=== PATIENT | male | born 1990 | race Caucasian/White ===

== ENCOUNTER 2016-07-14 12:22 | Emergency (ER) | payer MEDICAID ==
[2016-07-14 12:34] VITALS: BP 134/88
--- NOTE | 2016-07-14 12:42 | ED Physician Chart ---
Chief Complaint/HPI - Patient Information Date Seen:: 07/14/16 Time Seen:: 12:37 Chief Complaint:: CHEST PAIN X 3 DAYS History of Present Illness:: This 25-year-old male presents with a three-day history of upper substernal chest pain that radiates to his back and both his right and left shoulder regions. The pain has been constant and not intermittent. He describes it as a 8/10 severity with no aggravating or relieving factors. He denies any prior history of heart disease, diabetes, hyperlipidemia or hypertension. The patient is accompanied by mild to moderate respiratory distress. He denies any associated nausea or vomiting. No diaphoresis. The patient denies use of cocaine or tobacco. He does consume a hike quantity of beer on a daily basis. Allergies:: Allergies Allergy/AdvReac Type Severity Reaction Status Date / Time No Known Allergies Allergy Verified 07/14/16 12:30 Vitals:: Vital Signs - 8 hr 07/14/16 12:34 BP 134/88 Review of Systems - Review of Systems General/Constitutional: No fever, No chills, No weight loss, No weakness, No diaphoresis, Loss of appetite Skin: No skin lesions, No rash Head: No headache, No light-headedness Eyes: No loss of vision, No diplopia ENT: No earache, No sore throat, No tinnitus Neck: Neck pain (The patient has pain in the posterior neck region associated with the chest pain.), Stiffness, No mass noted Cardio Vascular: Chest pain, No palpitations, No PND, No edema Pulmonary: SOB, No cough, No sputum, No wheezing GI: No nausea, No vomiting, No diarrhea, No pain G/U: No dysuria, No frequency, No hematuria Musculoskeletal: Other ( Chest pain radiates to both the right and left shoulder regions.) Psychiatric: No prior psych history, No suicidal ideation Hematopoietic: No bruising, No lymphadenopathy Allergic/Immuno: No urticaria, No angioedema Neurological: No syncope, No weakness, No headache, No seizure, No dizziness, No confusion, No vertigo Past Medical History - Past Medical History Past Medical History: No significant medical hx Social History: Non Smoker, Alcohol, No Drug Use, Surgical History: None Family Medical History - Family Member Nephew History Unknown: Yes Ethnicity: Physical Exam - Physical Examination General/Constitutional: Well-developed, well-nourished, Alert, Non-toxic appearing, Ambulatory Other Gen/Cons comments:: Moderate distress from complained of chest pain. This was addressed with oral aspirin and sublingual nitroglycerin with moderate improvement. Head: Atraumatic Eyes: Lids, conjuctiva normal, PERRL, EOMI Skin: Nl inspection, No rash, No skin lesions, No ecchymosis ENMT: External ears, nose nl, Lips, teeth, gums nl, Oropharynx nl, Tonsils nl Neck: Nontender, Full ROM w/o pain, No JVD, No nuchal rigidity, No mass, No stridor Respiratory: Nl effort/Exclusion, Clear to Auscultation, No Wheeze/Rhonchi/Rales Cardio Vascular: RRR, No murmur, gallop, rubs, NL S1 S2, Carotid/Femoral/Distal pulses equal bilaterally GI: No tenderness/rebounding/guarding, No organomegaly, No hernia, Normal BS's, Nondistended, No mass/bruits, No McBurney tenderness Other GI comments:: Rectal exam deferred at my discretion. : No CVA tenderness Extremities: No tenderness or effusion, Full ROM, normal strength in all extremities, No edema, Normal digits & nails Other Extremities comments:: tenderness and Shepherd's sign is negative bilaterally. Neuro/Psych: Alert/oriented, Normal sensory exam, Normal motor strength, Mood normal, Normal gait, No focal deficits Labs/Radiology/EKG Results - Lab Results Results: Single view chest x-ray shows no cardiomegaly or CHF. NO mediastinall widening. No pneumothorax. No areas of pulmonary consolidation or infiltrate. Impression: No acute cardiopulmonary findings. EKG interpretation the patient has sinus rhythm at a rate of 83. Normal WA interval. Normal QRS duration. Normal QT interval. There is ST segment elevation or J-point elevation in leads V1 through V4. Laboratory Tests 07/14/16 07/14/16 07/14/16 12:49 12:49 12:49 WBC 7.2 RBC 5.41 Hgb 16.1 Hct 47.4 MCV 87.6 MCH 29.8 MCHC Differential 34.0 RDW 12.7 Plt Count 155 MPV 9.3 Band Neutrophils % 3 Neutrophils (Manual) 67 Lymphocytes 16 L Monocytes 12 H Eosinophils 1 Atypical Lymphocytes 1 Platelet Estimate ADEQUATE Sodium 133 L Potassium 3.5 Chloride 105 Carbon Dioxide 23.1 Anion Gap 8.4 BUN 9 Creatinine 0.8 Est GFR ( Amer) > 60.0 Est GFR (Non-Af Amer) > 60.0 BUN/Creatinine Ratio 11.3 Glucose 126 H Calcium 9.2 Troponin I 0.20 H* Laboratory interpretation troponin of 0.2 consistent with acute cardiac ischemia. Normal white count and hemoglobin level. Electrolytes were all within the normal range with the exception of a serum sodium of 133. This is probably clinically insignificant. Assessment - Assessment General Assessment: CASE SUMMARY: this 25-year-old male presented with three days of substernal chest pain that radiated to the posterior neck and upper back, and both shoulders. The pain had been constant since onset and there were no poetic components to it. Patient's cardiovascular examination was within normal limits. The patient's EKG showed J point elevation and leads the one through before. The computer read the EKG as showing an anterior myocardial infarction. The patient's complaints were addressed with PO aspirin 162 mg and two doses of sublingual nitroglycerin. The patient had improvement in his pain following this intervention. Chest x-ray was negative for cardiomegaly, CHF, mediastinal widening and pneumothorax. The serum troponin was 0.2 which is on the high side. Since we have no [employer], in a formerly [facility] was contacted and I spoke to Dr. Davion herman. He concurred with transfer to their facility for further diagnostic evaluation of the chest pain and possible coronary angiography. MDM DDX ACUTE CHEST PAIN: NOT Aortic dissection based on the patient's history and physical exam showing equal pulses in all four extremities. NOT Pulmonary embolism as the patient has no history of recent immobilization, surgery, history of cancer, no prior history of DVT or pulmonary embolism And no from Hemoptysis. NOT pneumothorax based on the negative chest x-ray. NOT Borhave's syndrome based on no history of vomiting.. CRITICAL CARE: 45 Minutes exclusive of any procedures. LIFE THREATENING CHEST PAIN which was addressed with PO aspirin and sublingual nitroglycerin. [facility]. Critical Care Time: Life threatening chest pa Excludes all billable procedures: Yes ED Septic Shock - . Is Septic Shock (SBP<90, OR Lactate>4 mmol\L) present?: No - <6hrs of presentation: Vital Signs: Vital Signs - 8 hr 07/14/16 12:34 BP 134/88 Reassessment (Disposition) - Reassessment Reassessment Condition:: Improved - Diagnosis Diagnosis:: ACUTE CHEST PAIN with elevated troponin and EKG showing either J-point or ST segment elevation in the precordial leads. - Aftercare/Follow up Instructions Aftercare/Follow-Up Instructions:: Counseled pt regarding lab results/diagnosis & need follow up - Patient Disposition Discharge/Transfer:: Acute Care (other hosp) Accepting Physician:: Dr. Gen Herrera Time Called:: 1340 hrs. ED Discharge Plan - Patient Disposition Admit/Discharge/Transfer: TRANSFER TO ACUTE HOSP Condition at Disposition: Stable
[2016-07-14] MEDS ORDERED: Aspirin 81mg Chewable Tab PO ONE (12:48)
[2016-07-14] MEDS ORDERED: Aspirin 81mg Chewable Tab ONE (13:08)
[2016-07-14 13:09] LABS: HEMATOCRIT 47.4 % (39.0-49.0); HEMOGLOBIN 16.1 gm/dL (13.2-17.3); MEAN CELL VOLUME 87.6 fl (80-99); MEAN CORPUSCULAR HEMOGLOBIN 29.8 pg (26.0-30.0); MEAN PLATELET VOLUME 9.3 fl; PLATELET COUNT 155 Th/cmm (150-400); RED BLOOD COUNT 5.41 Mil/cmm (4.30-5.70); RED CELL DISTRIBUTION WIDTH 12.7 % (11.5-20.0); WHITE BLOOD COUNT 7.2 Th/cmm (4.8-10.8)
[2016-07-14 13:21] LABS: ANION GAP 8.4 (7.0-16.0); BUN - UREA NITROGEN 9 mg/dL (7-25); BUN/CREATININE RATIO 11.3; CALCIUM SERUM 9.2 mg/dL (8.6-10.3); CARBON DIOXIDE 23.1 mEq/L (21.0-31.0); CHLORIDE 105 mEq/L (98-107); CREATININE - SERUM 0.8 mg/dL (0.7-1.3); GLUCOSE 126 mg/dL (70-105); POTASSIUM SERUM 3.5 mEq/L (3.5-5.1); SODIUM SERUM 133 mEq/L (136-145)
[2016-07-14 13:39] LABS: BAND NEUTROPHILE 3 % (0-10); EOSINOPHIL 1 % (0-5); NEUTROPHILS 67 % (40-80); PLATELET ESTIMATE ADEQUATE (NORMAL); TOTAL CELLS COUNTED 100
--- NOTE | 2016-07-15 09:23 | Diagnostic Imaging Report ---
CHEST X-RAY: AP view INDICATION: pain COMPARISON: None FINDINGS: There is no focal consolidation or pleural effusions The heart is normal in size. The osseous structures demonstrate no acute abnormalities. IMPRESSION: No acute cardiopulmonary disease.
== END 2016-07-14 13:55 | disposition short-term general hospital (02) ==
LOC: ER 12:22
DX: R07.89 Other chest pain (principal); R79.89 Other specified abnormal findings of blood chemistry
CPT/HCPCS: 36415-UA; 71010-TC; 80048-TC; 83880-TC; 84484-TC; 85007-TC; 85027-TC; 93005; Z7610